=== PATIENT | female | born 1990 | race American Indian/Alaskan Native ===

== ENCOUNTER 2017-01-22 16:22 | Emergency (ER) | payer MEDICAID ==
[2017-01-22 16:22] VITALS: BMI 46.0
[2017-01-22 16:32] VITALS: BP 125/89; PULSE 72; RESP 16; TEMP 97.2; O2SAT 100
[2017-01-22] MEDS ORDERED: Oxycodone/Acetaminophen 5/325 mg Tab PO STA (17:05)
[2017-01-22] MEDS ORDERED: Oxycodone/Acetaminophen 5/325 mg Tab ONE (17:14)
--- NOTE | 2017-01-22 17:16 | ED PDOC ---
Lower Extremity Pain/Injury Time Seen by Provider: 01/22/17 16:36 Chief Complaint (Nursing): Lower Extremity Problem/Injury Chief Complaint (Provider): Right knee pain History Per: Patient History/Exam Limitations: no limitations Onset/Duration Of Symptoms: Days Current Symptoms Are (Timing): Still Present Severity: Moderate Additional History Per: Patient Additional Complaint(s): The patient is a 26yo female, presents to the ED for evaluation of right knee pain with associated swelling and warmth, present for the past couple days. Patient denies any injury or trauma to her knee and states she first noticed the pain when she was sitting down in her car. Patient states she has taken Advil, Motrin, Tylenol, for pain with no relief. Patient denies any weakness, numbness or tingling and offers no additional medical complaints. Past Medical History Reviewed: Historical Data, Nursing Documentation, Vital Signs Vital Signs: Last Vital Signs Temp 97.2 F L 01/22/17 16:29 Pulse 72 01/22/17 16:29 Resp 16 01/22/17 16:29 BP 125/89 01/22/17 16:29 Pulse Ox 100 01/22/17 16:29 - Medical History PMH: No Chronic Diseases - Surgical History Surgical History: No Surg Hx - Family History Family History: States: Unknown Family Hx - Home Medications Home Medications: Ambulatory Orders Medication Instructions Recorded Amoxicillin 500 mg PO BID #20 tablet 12/01/15 predniSONE [predniSONE Tab] 20 mg PO DAILY #12 tab 01/22/17 - Allergies Allergies/Adverse Reactions: Allergies Allergy/AdvReac Type Severity Reaction Status Date / Time No Known Allergies Allergy Verified 03/11/15 11:58 Review of Systems ROS Statement: Except As Marked, All Systems Reviewed And Found Negative Musculoskeletal: Positive for: Leg Pain (right knee pain) Neurological: Negative for: Weakness, Numbness Physical Exam - Reviewed Nursing Documentation Reviewed: Yes Vital Signs Reviewed: Yes - Physical Exam Appears: Positive for: Well, Non-toxic, No Acute Distress Head Exam: Positive for: ATRAUMATIC, NORMAL INSPECTION, NORMOCEPHALIC Skin: Positive for: Normal Color Eye Exam: Positive for: Normal appearance ENT: Positive for: Normal ENT Inspection Neck: Positive for: Normal Respiratory: Negative for: Accessory Muscle Use, Respiratory Distress Pulses-Dorsalis Pedis (L): 2+ Pulses-Dorsalis Pedis (R): 2+ Back: Negative for: Normal Inspection Extremity: Positive for: Normal ROM, Tenderness (diffuse tenderness to right anterior knee ), Swelling. Negative for: Deformity Neurologic/Psych: Positive for: Alert, Oriented. Negative for: Motor/Sensory Deficits - ECG O2 Sat by Pulse Oximetry: 100 (RA) Pulse Ox Interpretation: Normal Medical Decision Making Medical Decision Making: Time: 1644 Impression: Bursitis, grounds supervisor's knee Plan: -- XR Right knee -- Percocet 1 tab PO Reassess x-ray without acute fracture or dislocation, (+) swelling Scribe Attestation: Documented by Brenda Heard acting as a scribe for TONY Rowland Provider Attestation: All medical record entries made by the Scribe were at my direction and personally dictated by me. I have reviewed the chart and agree that the record accurately reflects my personal performance of the history, physical exam, medical decision making, and the department course for this patient. I have also personally directed, reviewed, and agree with the discharge instructions and disposition. Disposition - Clinical Impression Clinical Impression: Knee pain - Patient ED Disposition Is Patient to be Admitted: No Counseled Patient/Family Regarding: Diagnosis, Need For Followup, Rx Given - Disposition Disposition: Routine/Home Disposition Time: 18:14 Condition: GOOD Prescriptions: predniSONE [predniSONE Tab] 20 mg PO DAILY #12 tab Instructions: Knee Pain (ED) Forms: [facility] (Portuguese)
--- NOTE | 2017-01-22 17:46 | RAD ---
PROCEDURE: Right Knee Radiographs. HISTORY: knee pain, anterior with edema COMPARISON: None. FINDINGS: BONES: No evidence of acute displaced fracture nor dislocation. JOINTS: Joint spaces appear preserved. No significant osteoarthritis. JOINT EFFUSION: No significant joint effusion. OTHER FINDINGS: None. IMPRESSION: No evidence of acute displaced fracture nor dislocation. If symptoms persist or occult fracture suspected clinically recommend repeat radiographs 5-10 days as most fractures should become radiographically evident this timeframe.
== END 2017-01-22 18:21 | disposition home or self-care (01) ==
LOC: H.ER 16:22
DX: M25.561 Pain in right knee (principal)